=== PATIENT | male | born 1970 | race Caucasian/White ===

== ENCOUNTER 2016-11-08 06:18 | Emergency (ER) | payer OTHER ==
--- NOTE | 2016-11-08 22:54 | ER ---
ADMIT: 11/08/2016 RM/LOC: ER [facility] MR#: [id number] 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 Increasing pain throughout his shift. Denies any radiation. Exam remarkable for nontoxic, afebrile male. Tender left thoracolumbar junction. X-ray thoracic and lumbar spine negative. Treated with Toradol 30 mg IM. Home with naproxen 500 mg b.i.d. #60. Continue Tylenol 1 g t.i.d. Add day care aide. Work release until . Jason Esquivel MD/ dmitri JOB #: [id number] CC: Jason Esquivel MD, Attending Physician Alexandra Morales MD
== END 2016-11-08 06:50 | disposition home or self-care (01) ==
LOC: ER 06:18
DX: S29.012A Strain of muscle and tendon of back wall of thorax, initial encounter (principal); S39.012A Strain of muscle, fascia and tendon of lower back, initial encounter; Z88.8 Allergy status to other drugs, medicaments and biological substances; X50.9XXA Other and unspecified overexertion or strenuous movements or postures, initial encounter; Y92.69 Other specified industrial and construction area as the place of occurrence of the external cause; Y99.0 Civilian activity done for income or pay